=== PATIENT | female | born 1945 | race Caucasian/White ===

== ENCOUNTER → 2016-04-24 | Outpatient (CLI) | payer OTHER, MEDICARE ==
--- NOTE | 2016-04-24 16:55 | DX ---
Left Wrist, 4 views including a navicular view History: Pain and swelling, no known trauma Findings: No acute fracture , malalignment or erosion is identified. There is likely an old solidly healed Colles' fracture of the distal radius and ulna, as well is an old healed mid 5th metacarpal sh aft fracture. There is a mild generalized osteopenia surrounding the wrist. There are no soft tissue calcification s. There is a small corticated degenerative ossicle proximal to the base of the first metacarpal, lat eral to the first metacarpal carpal joint. Impression: No acute abnormality identified.
== END ==
LOC: BMCIMAGING 16:16
PROVIDERS: ATTEND Family Medicine
DX: M25.532 Pain in left wrist (principal)

== ENCOUNTER → 2016-05-07 | Outpatient (CLI) | payer OTHER, MEDICARE ==
--- NOTE | 2016-05-07 18:05 | MA ---
Screening Digital Mammogram With iCAD Analysis Clinical Indications: Routine screening. Technique: Standard cephalocaudal projections are obtained. Digital breast tomosynthesis was performe d in the MLO projection with reconstruction at 1.0 mm slice thickness and composite MLO views reconst ructed. This examination is processed by the iCAD computer aided detection system. Comparison: February 2015, September 2013, April 2011, May 2006. Breast density: Type C; Heterogeneously dense. Findings: CAD was reviewed. Nodular asymmetries are noted in the upper central right breast on the ob lique since the size and on tomography. No suspicious calcifications are seen. There has been no sign ificant change in the appearance of the left breast. Impression: Right breast nodular asymmetries require further evaluation, BI-RADS 0. Recommendation: Spot compression assessment of the right breast with ultrasound suggested if the abno rmality persists on diagnostic evaluation. [facility] will send a result letter to the patient. Negative mammography should not preclude additional workup of a clinically suspicious finding. The patient's information is entered into a reminder system with a target due date for her next mammo gram.
== END ==
LOC: FIMAGING 15:47
DX: Z12.31 Encounter for screening mammogram for malignant neoplasm of breast (principal)
CPT/HCPCS: G0202

== ENCOUNTER → 2016-05-23 | Outpatient (CLI) | payer OTHER, MEDICARE ==
--- NOTE | 2016-05-23 15:09 | MA ---
Diagnostic Digital Right Mammogram History: Nodular asymmetry upper right breast. Comparison: Screening mammogram May 07, 2016. Technique: A true lateral view and 3 spot films of the right breast. Density: C Findings: The nodular density persists on the oblique lateral spot view, in the upper right breast. I t is likely in the outer right breast on the CC spot view, where it is likely obscured by dense breas t parenchyma. Impression: Further imaging with ultrasound, which will be performed shortly. BI-RADS 0, additional imaging with ultrasound
--- NOTE | 2016-05-23 15:35 | US ---
Right Breast Ultrasound History: Small nodule upper probably outer right breast Technique: Ultrasound exam with a high frequency linear transducer. Findings: There are scattered small subcentimeter simple cysts throughout the upper and outer quadran ts of the right breast , any of which could represent the finding on mammography. No solid nodule is identified. No sonographic architectural distortion is identified. Impression: The mammographic finding is consistent with one of many small simple cysts. Recommendation: 6 month follow-up diagnostic left mammogram to ensure stability or resolution of the small nodule BI-RADS 3. Probably benign. Results and recommendation were communicated to the patient at the time of the examination.
== END ==
LOC: FIMAGING 14:25
PROVIDERS: ATTEND Obstetrics & Gynecology
DX: R92.8 Other abnormal and inconclusive findings on diagnostic imaging of breast (principal)
CPT/HCPCS: 76641; G0206

== ENCOUNTER → 2017-02-08 | Outpatient (CLI) | payer OTHER, MEDICARE | LOC: FIMAGING 12:32 | PROVIDERS: ATTEND Obstetrics & Gynecology | DX: Z12.39 Encounter for other screening for malignant neoplasm of breast (principal); N63.10 Unspecified lump in the right breast, unspecified quadrant | CPT/HCPCS: G0206 ==